=== PATIENT | male | born 1985 | race Caucasian/White ===

== ENCOUNTER → 2017-03-09 | Outpatient (CLI) | payer OTHER | END | disposition home or self-care (01) | LOC: LAB 12:49 | DX: Z48.816 Encounter for surgical aftercare following surgery on the genitourinary system (principal); Z98.52 Vasectomy status ==

== ENCOUNTER → 2017-03-15 | Outpatient (CLI) | payer OTHER | LOC: LAB SHORT 20:30 → LAB 20:30 → LAB FUT 03-05 13:05 | DX: Z48.816 Encounter for surgical aftercare following surgery on the genitourinary system (principal); Z98.52 Vasectomy status ==